=== PATIENT | male | born 1980 | race Two or more races ===

== ENCOUNTER 2017-04-18 15:36 | Emergency (ER) | payer OTHER ==
[~2017-04-18] VITALS: Ht 177.8 cm; Wt 75.3 kg
[2017-04-18] MEDS ORDERED: NKM (15:44)
[2017-04-18 15:51] VITALS: BP 154/79
[2017-04-18] MEDS ORDERED: PROAIR HFA8.5 GM INH (16:06)
[2017-04-18] MEDS ORDERED: PREDNISONE20 MG ORAL (16:06)
[2017-04-18 16:09] VITALS: BP 154/79
--- NOTE | 2017-04-18 21:59 | Emergency Room Report ---
History of Present Illness General Chief Complaint: Upper Respiratory Illness Present Illness HPI The patient is a 36 old male presenting for feelings of shortness of breath and wheezing. He denies any medical history. He states that this occurs a few times a year with the last symptoms occurring 3 months prior. He states that he is usually given an inhaler which helps. He states he has never been diagnosed with asthma. Symptoms become worse with exercise and is worse at night. The patient denies recent travel or sick contacts. He denies other symptoms including fever, chills, nasal congestion, rash, chest pain Allergies: Coded Allergies: No Known Allergies (Unverified , 04/18/17) Patient History Past Medical History: see triage record Pertinent Family History: none Reviewed Nursing Documentation: PMH: Agreed, PSxH: Agreed Review of Systems All Other Systems: negative except mentioned in HPI Physical Exam Vital Signs Date Time Temp Pulse Resp B/P (MAP) Pulse Ox O2 Delivery O2 Flow Rate FiO2 04/18/17 15:41 98.2 81 16 154/79 95 Room Air Sp02 EP Interpretation: reviewed, normal General Appearance: no apparent distress, alert, GCS 15, non-toxic Head: normocephalic, atraumatic Eyes: bilateral eye normal inspection, bilateral eye PERRL ENT: hearing grossly normal, normal pharynx, no angioedema, normal voice, uvula midline Neck: full range of motion, supple/symm/no masses Respiratory: normal inspection, chest non-tender, no accessory muscle use, speaking full sentences, wheezing - minimal throughout Cardiovascular #1: regular rate, rhythm, no edema Gastrointestinal: normal bowel sounds, non tender, soft, non-distended, no guarding, no rebound Musculoskeletal: back normal, gait/station normal, normal range of motion, non- tender, calf tenderness Neurologic: alert, oriented x3, responsive, motor strength/tone normal, sensory intact, speech normal Psychiatric: judgement/insight normal, memory normal, mood/affect normal, no suicidal/homicidal ideation Skin: normal color, no rash, warm/dry, well hydrated Lymphatic: no adenopathy Medical Decision Making PA Attestation Dr. Wilcox is my supervising physician. Patient management was discussed with my supervising physician Diagnostic Impression: Primary Impression: Asthma Qualified Codes: J45.21 - Mild intermittent asthma with (acute) exacerbation ER Course The patient is a 36-year-old male presenting for shortness of breath and wheezing Differential diagnoses considered but not limited to: Asthma exacerbation, bronchitis, pneumonia, anxiety PE: Afebrile. NAD HEENT unremarkable. Lungs have diffuse minimal wheezing. No respiratory distress The patient will be discharged home with prescription for short course of oral steroids and albuterol. He was told that he likely has undiagnosed asthma and needs to followup with his primary doctor. ER precautions given Last Vital Signs Date Time Temp Pulse Resp B/P (MAP) Pulse Ox O2 Delivery O2 Flow Rate FiO2 04/18/17 16:09 98.2 16 154/79 95 Room Air 04/18/17 15:51 81 Status: improved Disposition: HOME, SELF-CARE Condition: Improved Scripts Albuterol Sulfate* (PROAIR HFA*) 8.5 Gm Hfa.aer.ad 2 PUFFS INH Q6H, #8.5 GM 0 Refills Prov: TREVON SEN 04/18/17 Prednisone* (PREDNISONE*) 20 Mg Tablet 40 MG ORAL DAILY, #10 TAB Prov: TREVON SEN 04/18/17 Referrals: NOT CHOSEN IPA/MD,REFERRING (PCP) Patient Instructions: Asthma, Adult Additional Instructions: I discussed my findings with the patient. All questions and concerns have been answered. Treatment and medication compliance have been addressed. I advised the patient that they need to follow up with PMD in 3-5 days. Return to ED if symptoms worsen, new symptoms arise, or if needed for any reason. Patient verbalized understanding of discharge instructions. TREVON SEN Apr 18, 2017 21:59
== END 2017-04-18 16:09 | disposition home or self-care (01) ==
LOC: EMR 16:05
DX: J45.909 Unspecified asthma, uncomplicated (principal)
CPT/HCPCS: 99284

== ENCOUNTER 2017-06-27 17:00 | Emergency (ER) | payer OTHER ==
[~2017-06-27] VITALS: Ht 177.8 cm; Wt 75.7 kg
[~2017-06-27 17:00] MED LIST: NKM; PREDNISONE20 MG ORAL; PROAIR HFA8.5 GM INH
[2017-06-27 17:06] VITALS: BP 151/90
--- NOTE | 2017-06-27 17:36 | Emergency Room Report ---
History of Present Illness General Chief Complaint: To Be Triaged Present Illness HPI 36 YO male presents to the ED c/o wheezing, and chest congestion x 2 weeks pt. reports was sick with URI last week, denies fevers, chills. reports hx of asthma type symptoms yearly when he gets URI. pt. reports wheezing is most prominent after working out at the gym. denies productive sputum, lower extremity edema, cardiac hx. denies neck pain/stiffness or sore-throat. denies recent travel, ill contacts, or pain with breathing. denies rashes, swelling of the lips or tongue. Denies CP, Palpitations, LOC, AMS, dizziness, Changes in Vision, Sensation, paresthesias, or a sudden severe headache. Allergies: Coded Allergies: No Known Allergies (Unverified , 04/18/17) Patient History Past Medical History: see triage record Past Surgical History: none Pertinent Family History: none Immunizations: UTD Reviewed Nursing Documentation: PMH: Agreed, PSxH: Agreed Review of Systems All Other Systems: negative except mentioned in HPI Physical Exam Vital Signs Date Time Temp Pulse Resp B/P (MAP) Pulse Ox O2 Delivery O2 Flow Rate FiO2 06/27/17 17:06 98.1 63 18 151/90 96 Room Air Sp02 EP Interpretation: reviewed, normal General Appearance: no apparent distress, alert, GCS 15, non-toxic Head: normocephalic, atraumatic Eyes: bilateral eye normal inspection, bilateral eye PERRL ENT: hearing grossly normal, normal pharynx, no angioedema, normal voice, TMs + canals normal, uvula midline, nasal congestion Neck: full range of motion, no meningismus, no bony tend Respiratory: chest non-tender, lungs clear, normal breath sounds, no rhonchi, no respiratory distress, speaking full sentences, wheezing - scant bilateral expiratory wheezes Cardiovascular #1: regular rate, rhythm, normal capillary refill Musculoskeletal: back normal, gait/station normal, normal range of motion, non- tender Neurologic: alert, oriented x3, responsive, motor strength/tone normal, sensory intact, speech normal Skin: normal color, no rash, warm/dry, well hydrated Lymphatic: no adenopathy Medical Decision Making PA Attestation Dr. Rock is my supervising Physician whom patient management has been discussed with. Diagnostic Impression: Primary Impression: Bronchitis Additional Impression: Acute bronchitis Qualified Codes: J20.9 - Acute bronchitis, unspecified ER Course 36 YO male presents to the ED c/o wheezing, and chest congestion x 2 weeks pt. reports was sick with URI last week, denies fevers, chills. reports hx of asthma type symptoms yearly when he gets URI. pt. reports wheezing is most prominent after working out at the gym. denies productive sputum, lower extremity edema, cardiac hx. denies neck pain/stiffness or sore-throat. denies recent travel, ill contacts, or pain with breathing. denies rashes, swelling of the lips or tongue. Denies CP, Palpitations, LOC, AMS, dizziness, Changes in Vision, Sensation, paresthesias, or a sudden severe headache. Ddx considered but are not limited to URI, pneumonia, PE, strep pharyngitis, meningitis, bronchitis, asthma, allergic reaction just to name a few. Vital signs: Pt.is afebrile VS are WNL H&PE are most consistent with bronchitis ORDERS: none required at this time, the diagnosis is clinical ED INTERVENTIONS: None required at this time. DISCHARGE: At this time pt. is stable for d/c to home. Will provide printed patient care instructions, and any necessary prescriptions. Care plan and follow up instructions have been discussed with the patient prior to discharge. Last Vital Signs Date Time Temp Pulse Resp B/P (MAP) Pulse Ox O2 Delivery O2 Flow Rate FiO2 06/27/17 17:06 98.1 63 18 151/90 96 Room Air Disposition: HOME, SELF-CARE Condition: Stable Scripts Multivitamin With Minerals (MULTIVITAMINS WITH MINERALS*) 1 Each Tablet 1 TAB ORAL DAILY, #30 TAB Prov: Tami Rocha P.A. 06/27/17 Albuterol Sulfate* (ALBUTEROL SULFATE MDI*) 8.5 Gm Hfa.aer.ad 2 PUFF INH Q3H, #1 INH 0 Refills Prov: Tami Rocha P.A. 06/27/17 Prednisone* (PREDNISONE*) 20 Mg Tablet 40 MG ORAL DAILY for 3 Days, #9 TAB Prov: Tami Rocha P.A. 06/27/17 Codeine/Promethazine Hcl* (PROMETHAZINE-CODEINE SYRUP*) 118 Ml Syrup 5 ML ORAL Q6H Y for For Cough, #120 ML 0 Refills Prov: Tami Rocha 06/27/17 Patient Instructions: Acute Bronchitis, [id number] Additional Instructions: Take medications as directed. Follow up with a Primary Care Provider in 3-5 days, even if your symptoms have resolved. --Please review list of primary care clinics, if you do not already have a primary care provider Return sooner to ED if new symptoms occur, or current symptoms become worse. Do not drink alcohol, drive, or operate heavy machinery while taking Cough Syrup as this may cause drowsiness. - Please note that this Emergency Department Report was dictated using [employer] blowing lathe operator technology software, occasionally this can lead to erroneous entry secondary to interpretation by the dictation equipment. Tami Rocha Jun 27, 2017 17:36
[2017-06-27] MEDS ORDERED: PROMETHAZINE-C118 M1 ORAL (17:37)
[2017-06-27] MEDS ORDERED: ALBUTEROL SULF8.5 GM INH (17:37)
[2017-06-27] MEDS ORDERED: PREDNISONE20 MG ORAL (17:37)
[2017-06-27] MEDS ORDERED: MULTIVITAMINS1 EAC8 ORAL (17:48)
[2017-06-27 17:50] VITALS: BP 153/90
== END 2017-06-27 17:50 | disposition home or self-care (01) ==
LOC: EMR 17:30
DX: J20.9 Acute bronchitis, unspecified (principal)
CPT/HCPCS: 99284